=== PATIENT | female | born 1945 | race Caucasian/White ===

== ENCOUNTER 2017-09-28 21:34 | Observation (INO) | payer OTHER ==
[2017-09-28] MEDS ORDERED: ONDANSETRON HCL 4 MG/2 ML VIAL IV PUSH PRN (22:00)
[2017-09-28] MEDS ORDERED: RESP: ALBUTEROL 2.5 MG/IPRATROPIUM 0.5 MG NEB (PRN) INH (22:00)
[2017-09-28] MEDS ORDERED: ACETAMINOPHEN 325 MG TAB PO PRN (22:00)
[2017-09-28] MEDS ORDERED: SODIUM CHLORIDE 0.9% FLUSH 10 ML FLUSH IV FLUSH PRN (22:00)
[2017-09-28] MEDS ORDERED: guaiFENesin/DEXTROMETHORPHAN 200 MG/20 MG/10 ML CUP PO PRN (22:00)
[2017-09-29] VITALS (9 sets, daily range): BP systolic 10–175; BP diastolic 56–89; PULSE 80–118; RESP 16–20; TEMP 97.6–98.5; O2SAT 93–100
[2017-09-29] MEDS: ENOXAPARIN SODIUM 40 MG/0.4 ML SYRINGE SQ SCH ×2 (00:39→20:27)
[2017-09-29] MEDS: NS + KCL 20 MEQ INJ 1,000 ML IV SCH ×3 (00:40→18:32)
[2017-09-29] MEDS: RESP: ALBUTEROL 2.5 MG/IPRATROPIUM 0.5 MG NEB (SCH) INH ×4 (03:16→21:10)
[2017-09-29] MEDS: SODIUM CHLORIDE 0.9% FLUSH 10 ML FLUSH IV FLUSH SCH ×2 (08:10→20:28)
[2017-09-29 09:13] LABS: AUTOMATED NEUTROPHIL # 16.8 TH/MM3 (1.8-7.7); BASOPHIL % 0.1 % (0.0-2.0); EOSINOPHIL # 0.4 TH/MM3 (0-0.4); EOSINOPHIL % 2.2 % (0.0-4.0); HEMATOCRIT 32.5 % (35.0-46.0); HEMOGLOBIN 10.3 GM/DL (11.6-15.3); LYMPH % 9.1 % (9.0-44.0); LYMPHOCYTE # 1.8 TH/MM3 (1.0-4.8); MEAN CELL VOLUME 76.9 FL (80.0-100.0); MEAN CORPUSCULAR HEMOGLOBIN 24.3 PG (27.0-34.0); MEAN CORPUSCULAR HGB CONC 31.7 % (32.0-36.0); MEAN PLATELET VOLUME 9.1 FL (7.0-11.0); MONO % 2.1 % (0.0-8.0); MONOCYTE # 0.4 TH/MM3 (0-0.9); NEUT % 86.5 % (16.0-70.0); PLATELET COUNT 226 TH/MM3 (150-450); RED BLOOD COUNT 4.23 MIL/MM3 (4.00-5.30); RED CELL DISTRIBUTION WIDTH 14.9 % (11.6-17.2); WHITE BLOOD COUNT 19.4 TH/MM3 (4.0-11.0)
[2017-09-29 09:15] LABS: CALCIUM 7.6 MG/DL (8.5-10.1)
[2017-09-29 09:16] LABS: BICARBONATE 25.6 MEQ/L (21.0-32.0)
[2017-09-29 09:19] LABS: CREATININE 0.9 MG/DL (0.50-1.00)
--- NOTE | 2017-09-29 09:43 | HHI.HP ---
[facility] Primary Care Physician Unknown Admission Diagnosis Bronchopneumonia Diagnoses: (1) Pneumonia (2) Hypertension (3) Anemia Chief Complaint: Abdominal pain, nausea, vomiting and subjective fever Travel History International Travel<30 Days: No Contact w/Intl Traveler <30 Da: No Traveled to Known Affected Are: No Sepsis Criteria SIRS Criteria (2 or more): Heart rate over 90, WBC > 18322, < 4000 or > 10% bands Criteria Outcome: Meets SIRS criteria History of Present Illness This is a pleasant 72-year-old Citizen [place]-speaking female patient who presented to the ED with complaints of abdominal pain, nausea, vomiting and subjective fevers. Patient does admit to mild shortness of breath as well. Medical history and assessment was performed with use of Citizen [place]-speaking technical spec. Patient states she has had pain in her stomach for roughly a week, when yesterday the pain started to get worse in her mid epigastric area, does admit to a few bouts of nausea and vomiting. Denied any diarrhea. Does admit to subjective fevers although did not check it at home. Does admit to nonproductive cough as well. Patient has a history of hypertension and GERD. Did undergo an EGD 3 years ago which was reportedly negative. Denies any tobacco abuse. Does admit to some recent dark stools but no hematozemia. Patient does follow with the PCP, was seen last week with no changes in medicines. Denies any recent NSAID use, it should be noted that aspirin is on her medication list but she states she has not taken this in over 6 months. Does have a family history of stomach cancer. Patient presents with leukocytosis 19.4. Does have presence of anemia. Hemoglobin 10.3/hematocrit 32.5. Potassium 3.1. Elevated random glucose 142. Review of Systems Constitutional: COMPLAINS OF: Fever, Chills, DENIES: Fatigue Eyes: DENIES: Blurred vision, Diplopia Respiratory: COMPLAINS OF: Cough, DENIES: Sputum production, Shortness of breath Cardiovascular: DENIES: Chest pain, Palpitations Gastrointestinal: COMPLAINS OF: Abdominal pain, Black stools, Nausea, Vomiting , DENIES: Bloody stools, Constipation, Diarrhea Musculoskeletal: DENIES: Joint pain Hematologic/lymphatic: DENIES: Bruising Psychiatric: COMPLAINS OF: Anxiety Except as stated in HPI: all other systems reviewed are Neg Past Family Social History Past Medical History Hypertension GERD Past Surgical History Tummy tuck with liposuction Reported Medications Active Reported Aspirin 81 Mg Chew 81 Mg CHEW DAILY Lisinopril 20 Mg Tab 20 Mg PO DAILY Omeprazole 40 Mg Cap 40 Mg DAILY Allergies: Coded Allergies: Sulfa (Sulfonamide Antibiotics) (Verified Allergy, Intermediate, 09/28/17) Active Ordered Medications Current Medications Medications (Trade) Dose Ordered Sig/Arabella Route Start Time Stop Time Status Last Admin Potassium Chloride/Sodium Chloride 1,000 ml @ 100 mls/hr Q10H IV 09/28/17 21:47 09/29/17 08:10 (NS Flush) 2 ml UNSCH PRN IV FLUSH 09/28/17 22:00 (NS Flush) 2 ml BID IV FLUSH 09/29/17 09:00 Ceftriaxone Sodium 1000 mg/ Sodium Chloride 100 ml @ 200 mls/hr Q24H IV 09/29/17 21:00 Azithromycin 500 mg/Sodium Chloride 250 ml @ 250 mls/hr Q24H IV 09/29/17 22:00 (Tylenol) 650 mg Q4H PRN PO 09/28/17 22:00 (Zofran Inj) 4 mg Q6H PRN IV PUSH 09/28/17 22:00 (Duoneb Neb) 1 ampule Q6HR NEB INH 09/28/17 22:00 09/29/17 09:13 (Duoneb Neb) 1 ampule Q4HR NEB PRN INH 09/28/17 22:00 (Robitussin Dm 200-20 Mg/10 ml Liq) 10 ml Q4H PRN PO 09/28/17 22:00 (Lovenox Inj) 40 mg Q24H SQ 09/28/17 22:00 09/29/17 00:39 Family History Paternal medical history significant for cardiovascular disease. Patient does have an extensive history of stomach cancer in her family. Social History Denies any tobacco, alcohol or illicit drug use. Does admit to smoking 25 years 1ppd, quit 5 years ago. Physical Exam Vital Signs Vital Signs Date Time Temp Pulse Resp B/P (MAP) Pulse Ox O2 Delivery O2 Flow Rate FiO2 09/29/17 09:16 93 09/29/17 08:20 97.6 80 16 130/56 (80) 100 09/29/17 00:11 98 Nasal Cannula 2.00 09/29/17 00:00 98.5 111 20 116/56 (76) 98 Physical Exam GENERAL: Well-developed, well-nourished patient in [facility]. SKIN: Warm and dry. No rash. HEAD: Normocephalic. Atraumatic. EYES: Pupils equal and round. No scleral icterus. No injection or drainage. ENT: No nasal bleeding or discharge. Mucous membranes pink and moist. NECK: Supple. Trachea midline. CARDIOVASCULAR: Regular rate and rhythm. S1, S2 noted. No murmur appreciated. No chest pain to palpation. RESPIRATORY: No accessory muscle use. Clear to auscultation. Breath sounds equal bilaterally. GASTROINTESTINAL: Abdomen soft, non-tender, nondistended. Normoactive bowel sounds x4. No abdominal pain to palpation. MUSCULOSKELETAL: No obvious deformities. Extremities without clubbing, cyanosis , or edema. NEUROLOGICAL: Awake and alert. No obvious cranial nerve deficits. Motor grossly within normal limits. 5/5 muscle strength in bilateral upper and lower extremities. Normal speech. PSYCHIATRIC: Appropriate mood and affect; insight and judgment normal. Laboratory Laboratory Tests Test 09/29/17 08:52 White Blood Count 19.4 Red Blood Count 4.23 Hemoglobin 10.3 Hematocrit 32.5 Mean Corpuscular Volume 76.9 Mean Corpuscular Hemoglobin 24.3 Mean Corpuscular Hemoglobin Concent 31.7 Red Cell Distribution Width 14.9 Platelet Count 226 Mean Platelet Volume 9.1 Neutrophils (%) (Auto) 86.5 Lymphocytes (%) (Auto) 9.1 Monocytes (%) (Auto) 2.1 Eosinophils (%) (Auto) 2.2 Basophils (%) (Auto) 0.1 Neutrophils # (Auto) 16.8 Lymphocytes # (Auto) 1.8 Monocytes # (Auto) 0.4 Eosinophils # (Auto) 0.4 Basophils # (Auto) 0.0 CBC Comment AUTO DIFF Blood Urea Nitrogen 17 Creatinine 0.90 Random Glucose 142 Calcium Level 7.6 Sodium Level 143 Potassium Level 3.1 Chloride Level 111 Carbon Dioxide Level 25.6 Anion Gap 6 Estimat Glomerular Filtration Rate 62 Date/Time Source Procedure Growth Status 09/29/17 08:05 Nasal Aspirate Influenza Types A,B Antigen (CHARITO) - Final NEGATIVE FOR FLU A AND B ANTIGEN.... Complete Result Diagram: 09/29/1785109/29/17851 Septic Shock Reassessment Septic shock perfusion: reassessment completed Caprini VTE Risk Assessment Caprini VTE Risk Assessment: Mod/High Risk (score >= 2) Caprini Risk Assessment Model Point Value = 1 Point Value = 2 Point Value = 3 Point Value = 5 Age 41-60 Minor surgery BMI > 25 kg/m2 Swollen legs Varicose veins or History of unexplained or recurrent spontaneous Oral contraceptives or hormone replacement Sepsis (< 1 month) Serious lung disease, including pneumonia (< 1 month) Abnormal pulmonary function Acute myocardial infarction Congestive heart failure (< 1 month) History of inflammatory bowel disease Medical patient at bed rest Age 61-74 Arthroscopic surgery Major open surgery (> 45 min) Laparoscopic surgery (> 45 min) Malignancy Confined to bed (> 72 hours) Immobilizing plaster cast Central venous access Age >= 75 History of VTE Family history of VTE Factor V Leiden Prothrombin [id number] Lupus anticoagulant Anticardiolipin antibodies Elevated serum homocysteine Heparin-induced thrombocytopenia Other congenital or acquired thrombophilia Stroke (< 1 month) Elective arthroplasty Hip, pelvis, or leg fracture Acute spinal cord injury (< 1 month) Prophylaxis Regimen Total Risk Factor Score Risk Level Prophylaxis Regimen 0-1 Low Early ambulation 2 Moderate Order ONE of the following: *Sequential Compression Device (SCD) *Heparin 5000 units SQ BID 3-4 Higher Order ONE of the following medications: *Heparin 5000 units SQ TID *Enoxaparin/Lovenox 40 mg SQ daily (WT < 150 kg, CrCl > 30 mL/min) *Enoxaparin/Lovenox 30 mg SQ daily (WT < 150 kg, CrCl > 10-29 mL/min) *Enoxaparin/Lovenox 30 mg SQ BID (WT < 150 kg, CrCl > 30 mL/min) AND/OR *Sequential Compression Device (SCD) 5 or more Highest Order ONE of the following medications: *Heparin 5000 units SQ TID (Preferred with Epidurals) *Enoxaparin/Lovenox 40 mg SQ daily (WT < 150 kg, CrCl > 30 mL/min) *Enoxaparin/Lovenox 30 mg SQ daily (WT < 150 kg, CrCl > 10-29 mL/min) *Enoxaparin/Lovenox 30 mg SQ BID (WT < 150 kg, CrCl > 30 mL/min) AND *Sequential Compression Device (SCD) Assessment and Plan Problem List: (1) Pneumonia ICD Code: J18.9 - Pneumonia, unspecified organism (2) Anemia ICD Code: D64.9 - Anemia, unspecified (3) Hypertension ICD Code: I10 - Essential (primary) hypertension Assessment and Plan This is a pleasant 72-year-old Citizen [place]-speaking female patient who presented to the ED with complaints of abdominal pain, nausea, vomiting and subjective fevers. Patient does admit to mild shortness of breath as well. Medical history and assessment was performed with use of [place]-speaking technical spec. Community-acquired pneumonia with presence of cough and hypoxia with need for supplemental O2 Incidental finding of bilateral small lung nodules rule out inflammatory cause versus infectious process cause versus possible malignancy ? - Meets SIRS criteria with leukocytosis white blood cell 19.4 with left band shift, tachycardia, unknown source suspect secondary to pneumonia. - Chest x-ray reviewed showing interstitial prominence with scattered minimal airspace disease. - Patient denies any recent sick contacts. Denies any known pulmonary nodules in the past. Denies any history of tobacco abuse. - Does admit to a nonproductive cough as well as subjective fevers. Afebrile since presentation. Continue to monitor for infection. A UA is ordered, follow. - Has been started on ceftriaxone and azithromycin IV. Will continue. Robitussin as needed for cough. Will continue IV fluid. - Pulmonary consulted, appreciate input recommendations. - Supplemental O2 as needed, patient is requiring 2 L nasal cannula. Duo nebs as needed. Started on scheduled steroids. - Supportive care. Microcytic, hypochromic anemia with normal RDW: Denies any history of anemia. Does admit to recent dark stools. Denies any hematozemia. Will check Hemoccult stool. Will add iron studies. Nausea and vomiting Hypokalemia, suspect secondary to above - Abdominal/pelvis CT reviewed showing no acute findings. No obstruction, free fluid or free air. Mild basilar airspace disease and septal thickening in the lungs with small nodule at the right and left lung base. -Nausea and vomiting has since resolved since presentation. Zofran available as needed. - Potassium 3.1 on presentation. Will order supplementation. Follow BMP. Elevated random glucose. Denies any history of diabetes. Will add hemoglobin A1c as well as a lipid panel to lab work. Continue to follow. DVT prophylaxis: SCDs. Lovenox. Mary Irby Sep 29, 2017 09:43
[2017-09-29 10:05] LABS: BANDS 20 % (0-6); LYMPHOCYTES 16 % (9-44); MONOCYTES 1 % (0-8); NEUTROPHIL # MANUAL DIFF 16.1 TH/MM3 (1.8-7.7); POLYS (SEG NEUTROPHILS) 63 % (16-70)
[2017-09-29 10:07] LABS: DOHLE BODIES PRESENT (NONE SEEN); OVALOCYTES 1+ (NORMAL); ROULEAUX PRESENT (NORMAL)
[2017-09-29] MEDS ORDERED: OMEP40CA2 (10:53)
[2017-09-29] MEDS ORDERED: ASPI-516 CHEW (10:53)
[2017-09-29] MEDS ORDERED: LISI-515 PO (10:53)
[2017-09-29] MEDS ORDERED: ALUMINUM/MAGNESIUM/SIMETH 30 ML CUP PO PRN (12:45)
[2017-09-29] MEDS ORDERED: PANTOPRAZOLE SODIUM 40 MG VIAL IV PUSH SCH (13:00)
[2017-09-29 15:53] LABS: CHOLESTEROL 126 MG/DL (120-200); TRIGLYCERIDES 125 MG/DL (42-150)
[2017-09-29 15:53] LABS: % SATURATION IRON PROFILE 8.1 % (20-50); IRON (FE) 19 MCG/DL (50-170); TOTAL IRON BINDING CAPACITY 235 MCG/DL (250-450)
[2017-09-29 15:55] LABS: CHOLESTEROL/ HDL RATIO 3.22 RATIO; HDL CHOLESTEROL 39.1 MG/DL (40.0-60.0); LDL CHOLESTEROL 62 MG/DL (0-99)
[2017-09-29 16:21] LABS: BILIRUBIN, URINE NEG (NEG); BLOOD, URINE TRACE (NEG); GLUCOSE,URINE NEG (NEG); KETONE, URINE NEG (NEG); NITRITE,URINE NEG (NEG); URINE COLOR YELLOW (YELLW/STRAW); URINE LEUKOCYTE ESTERASE NEG (NEG)
[2017-09-29 16:27] LABS: AMORPHOUS SEDIMENT, URINE FEW; RBC, URINE 0-3 /hpf (0-3); SQUAMOUS EPITHELIAL CELL URINE 0-5 /hpf (0-5)
[2017-09-29] MEDS ORDERED: PEG (High)/E-LYTE SOLN 4000 ML BTL PO ONE (17:15)
--- NOTE | 2017-09-29 17:48 | MB ---
cc: Spike Almaguer MD DATE: 09/29/2017 REASON FOR REFERRAL: Anemia and abdominal pain. HISTORY OF PRESENT ILLNESS: Thank you for the consultation. A 72-year-old lady who is [place]er-speaking only. This consultation was done with her family present, including her daughter, son-in-law, and . The patient came complaining of some shortness of breath, midepigastric pain with nausea and vomiting. Her symptoms resolved, but then she was found to have severe anemia. The patient apparently had EGD maybe 3-5 years ago. She does not remember the exact finding, but she thinks it was normal. The patient denied any GI symptoms before except gaining some weight that she tried to lose by walking. The patient had elevated white count of 19.4 and questionable shortness of breath. No hematemesis, no hematochezia, no other problem. REVIEW OF SYSTEMS: All 12 points negative. PAST MEDICAL HISTORY: Significant for hypertension and reflux symptoms. PAST SURGICAL HISTORY: Positive for tummy tuck with liposuction and . MEDICATIONS: Reviewed in the chart. No blood thinners, except Lovenox. ALLERGIES: SULFA. FAMILY HISTORY: Coronary artery disease. SOCIAL HISTORY: No tobacco or drug. She used to smoke, but she quit 5 years ago. PHYSICAL EXAMINATION: GENERAL: Alert, oriented, no acute distress. VITAL SIGNS: Stable. HEENT: Pupils round, reactive to light. NECK: Supple. CHEST: Clear to auscultation and percussion. CARDIAC: Regular rate and rhythm. No murmur or gallop. ABDOMEN: Soft, nondistended, nontender. Positive bowel sounds. EXTREMITIES: No edema, clubbing or cyanosis. NEUROLOGIC: Intact, alert, oriented. No muscular abnormality. No weakness or neurological deficit. PSYCHOLOGIC: Appropriate. She understands Korean slightly. LABORATORY AND DIAGNOSTIC DATA: White count 19.4, hemoglobin 10.3, platelet 226. Iron saturation was 8.1. BUN and creatinine normal. Chest x-ray interstitial prominence with scattered minimal airspace disease, bronchopneumonia. CT scan showed mild basilar airspace disease with septal thickening of the lung and small nodule at the right and left lung base. No acute finding in the abdomen. ASSESSMENT AND PLAN: A 72-year-old lady with abdominal pain, nausea, vomiting; could be gastroenteritis, but also pneumonia possibility causing the white count. She has anemia. She will need upper endoscopy and a colonoscopy for the anemia for the iron deficiency. I discussed with the patient the procedure and complication. She is agreeable to have it done. This will be done tomorrow in the morning. Will prep the patient. MD ADRIANA Beckham/SEN , 05:12 PM , 05:47 PM
[2017-09-29] MEDS ORDERED: cefTRIAXone INJ 1,000 MG in SODIUM CHLORIDE 0.9% INJ 100 ML IV SCH (21:00)
[2017-09-29] MEDS ORDERED: methylPREDNISolone SOD SUCC 40 MG/1 ML VIAL IV PUSH SCH (21:00)
[2017-09-29] MEDS ORDERED: AZITHROMYCIN INJ 500 MG in SODIUM CHLOR 0.9% 250 ML INJ 250 ML IV SCH (22:00)
--- NOTE | 2017-09-29 23:50 | EKG ---
Date Performed: 09/29/2017 Time Performed: 17:56:01 PTAGE: 72 years EKG: SINUS TACHYCARDIA ABNORMAL RHYTHM ECG NO PREVIOUS TRACING DOCTOR: [place] Interpretating Date/Time 09/29/2017 23:49:42
[2017-09-30] VITALS (7 sets, daily range): BP systolic 112–158; BP diastolic 58–84; PULSE 100–112; RESP 18–20; TEMP 96.5–98.6; O2SAT 92–97
[2017-09-30] MEDS: NS + KCL 20 MEQ INJ 1,000 ML IV SCH (00:19)
[2017-09-30] MEDS: RESP: ALBUTEROL 2.5 MG/IPRATROPIUM 0.5 MG NEB (SCH) INH ×2 (03:44→09:56)
[2017-09-30 06:01] LABS: CHLORIDE 112 MEQ/L (98-107); HEMATOCRIT 30.5 % (35.0-46.0); HEMOGLOBIN 10.3 GM/DL (11.6-15.3); MEAN CELL VOLUME 76.8 FL (80.0-100.0); MEAN CORPUSCULAR HEMOGLOBIN 25.9 PG (27.0-34.0); MEAN CORPUSCULAR HGB CONC 33.8 % (32.0-36.0); MEAN PLATELET VOLUME 9.3 FL (7.0-11.0); PLATELET COUNT 239 TH/MM3 (150-450); RED BLOOD COUNT 3.98 MIL/MM3 (4.00-5.30); RED CELL DISTRIBUTION WIDTH 15.1 % (11.6-17.2); SODIUM (NA) 145 MEQ/L (136-145); WHITE BLOOD COUNT 14.8 TH/MM3 (4.0-11.0)
[2017-09-30 06:05] LABS: CALCIUM 7.9 MG/DL (8.5-10.1)
[2017-09-30 06:06] LABS: ALBUMIN 2.6 GM/DL (3.4-5.0); BICARBONATE 25.1 MEQ/L (21.0-32.0); BLOOD UREA NITROGEN 9 MG/DL (7-18); GLUCOSE,RANDOM 155 MG/DL (74-106)
[2017-09-30 06:09] LABS: ALT (GPT) 67 U/L (10-53); AST (GOT) 33 U/L (15-37); CREATININE 0.74 MG/DL (0.50-1.00); GLOMERULAR FILTRATION RATE 78 ML/MIN (>89)
[2017-09-30 06:10] LABS: TOTAL BILIRUBIN ADULT 0.4 MG/DL (0.2-1.0)
[2017-09-30 06:11] LABS: TOTAL PROTEIN 6.3 GM/DL (6.4-8.2)
[2017-09-30 06:12] LABS: ALKALINE PHOSPHATASE 176 U/L (45-117)
[2017-09-30 07:26] LABS: BANDS 1 % (0-6); LYMPHOCYTES 10 % (9-44); MONOCYTES 1 % (0-8); NEUTROPHIL # MANUAL DIFF 13.2 TH/MM3 (1.8-7.7); POLYS (SEG NEUTROPHILS) 88 % (16-70)
--- NOTE | 2017-09-30 08:00 | PD.PROCEDR ---
GI Procedure PROCEDURE PERFORMED EGD with biopsy, colonoscopy with snare polypectomy and ablation of polyp INDICATION FOR PROCEDURE Abdominal pain, nausea vomiting, iron deficiency anemia PROCEDURE: The procedure, risks and benefits were discussed with Ms. Otero and informed consent was obtained. Anesthesia sedated her with Diprivan. She was placed in the left lateral decubitus position. EGD Scope was placed in the mouth and advanced under video guidance to the second portion of the duodenum, the scope brought back to the stomach biopsy from the antrum and lesser curve and the scope through back without any immediate complication Colonoscopy Scope was placed in the rectum after performing rectal exam which was normal advanced under video guidance to the cecum which was identified by the ileocecal valve and appendiceal orifice the scope through the back gradually with visualization of the chronic mucosa down to the rectum retroflexion was performed there were multiple polyps in the rectum one removed by snare and 5 ablated with heat scope withdrawal back without immediate complications ESTIMATED BLOOD LOSS: None SPECIMENS REMOVED: Antrum, rectal polyp COMPLICATIONS: None IMPRESSION: Esophagus normal Stomach gastritis biopsy from the antrum Duodenum normal Few polyps in the rectum was removed by snare and for ablated with heat Internal hemorrhoid Normal exams otherwise No sign of active bleeding PLAN: Follow-up biopsy No NSAIDs Protonix 40 mg daily capsule endoscopy as an outpatient May feed patient Okay to [place] home from GI stand Spike Almaguer MD Sep 30, 2017 08:00
--- NOTE | 2017-09-30 08:02 | HHI.GIFU ---
Subjective Remarks Patient lying in bed comfortably, no acute distress, no active bleeding, no nausea or vomiting Objective Vitals I&O Vital Signs Date Time Temp Pulse Resp B/P (MAP) Pulse Ox O2 Delivery O2 Flow Rate FiO2 09/30/17 06:40 98.1 112 18 125/58 (80) 95 09/30/17 04:00 98.1 112 20 123/58 (79) 95 09/30/17 00:00 97.4 100 18 134/67 (89) 92 09/29/17 21:10 94 Nasal Cannula 2.00 09/29/17 20:00 97.7 118 20 175/89 (117) 99 09/29/17 16:20 98.4 112 16 10/56 (41) 95 09/29/17 12:00 98.1 94 18 113/63 (80) 100 09/29/17 09:16 93 09/29/17 08:20 97.6 80 16 130/56 (80) 100 I/O 09/29/17 09/29/17 09/29/17 09/30/17 09/30/17 09/30/17 07:00 15:00 23:00 07:00 15:00 23:00 Intake Total 240 ml 1000 ml 200 ml Output Total 301 ml 350 ml Balance 240 ml -301 ml -350 ml 1000 ml 200 ml Intake Oral 240 ml 1000 ml Other 200 ml Output Urine Total 300 ml 350 ml Stool Total 1 ml # Voids 2 6 # Bowel Movements 2 6 Laboratory Laboratory Tests Test 09/29/17 08:52 09/29/17 12:23 09/29/17 16:15 09/30/17 05:30 White Blood Count 19.4 14.8 Red Blood Count 4.23 3.98 Hemoglobin 10.3 10.3 Hematocrit 32.5 30.5 Mean Corpuscular Volume 76.9 76.8 Mean Corpuscular Hemoglobin 24.3 25.9 Mean Corpuscular Hemoglobin Concent 31.7 33.8 Red Cell Distribution Width 14.9 15.1 Platelet Count 226 239 Mean Platelet Volume 9.1 9.3 Neutrophils (%) (Auto) 86.5 Lymphocytes (%) (Auto) 9.1 Monocytes (%) (Auto) 2.1 Eosinophils (%) (Auto) 2.2 Basophils (%) (Auto) 0.1 Neutrophils # (Auto) 16.8 Lymphocytes # (Auto) 1.8 Monocytes # (Auto) 0.4 Eosinophils # (Auto) 0.4 Basophils # (Auto) 0.0 CBC Comment AUTO DIFF AUTO DIFF Differential Total Cells Counted 100 100 Neutrophils % (Manual) 63 88 Band Neutrophils % 20 1 Lymphocytes % 16 10 Monocytes % 1 1 Neutrophils # (Manual) 16.1 13.2 Differential Comment FINAL DIFF MANUAL FINAL DIFF MANUAL Dohle Bodies PRESENT Platelet Estimate NORMAL NORMAL Platelet Morphology Comment NORMAL NORMAL Ovalocytes 1+ Rouleau PRESENT Blood Urea Nitrogen 17 9 Creatinine 0.90 0.74 Random Glucose 142 155 Calcium Level 7.6 7.9 Sodium Level 143 145 Potassium Level 3.1 3.2 Chloride Level 111 112 Carbon Dioxide Level 25.6 25.1 Anion Gap 6 8 Estimat Glomerular Filtration Rate 62 78 Triglycerides Level 125 Cholesterol Level 126 LDL Cholesterol 62 HDL Cholesterol 39.1 Cholesterol/HDL Ratio 3.22 Iron Level 19 Total Iron Binding Capacity 235 Percent Iron Saturation 8.1 Urine Collection Type CLEAN CATCH Urine Color YELLOW Urine Turbidity CLEAR Urine pH 6.0 Urine Specific [place] 1.015 Urine Protein NEG Urine Glucose (UA) NEG Urine Ketones NEG Urine Occult Blood TRACE Urine Nitrite NEG Urine Bilirubin NEG Urine Urobilinogen 0.2 Urine Leukocyte Esterase NEG Urine RBC 0-3 Urine Squamous Epithelial Cells 0-5 Urine Amorphous Sediment FEW Microscopic Urinalysis Comment CULT NOT INDICATED Urine Collection Time 1615 Total Protein 6.3 Albumin 2.6 Alkaline Phosphatase 176 Aspartate Amino Transf (AST/SGOT) 33 Alanine Aminotransferase (ALT/SGPT) 67 Total Bilirubin 0.4 Date/Time Source Procedure Growth Status 09/29/17 16:15 Stool Stool Stool Occult Blood (CHARITO) - Final HEMOCCULT NEGATIVE Complete 09/29/17 08:05 Nasal Aspirate Influenza Types A,B Antigen (CHARITO) - Final NEGATIVE FOR FLU A AND B ANTIGEN.... Complete Physical Exam HEENT: Pupils round and reactive to light; normocephalic; atraumatic; no jaundice. Throat is clear. NECK: Neck is supple, no JVD, no lymphadenopathy. CHEST: Chest is clear to auscultation and percussion. CARDIAC: Regular rate and rhythm with no murmur gallop or rubs. ABDOMEN: Soft, nondistended, nontender; no hepatosplenomegaly; bowel sounds are present in all four quadrants. EXTREMITIES: No clubbing, cyanosis, or edema. SKIN: Normal; no rash; no jaundice. 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 Assessment and Plan Plan 72-year-old lady came with nausea vomiting abdominal discomfort symptoms resolved could be gastroenteritis, patient found to have microcytic anemia, had an upper endoscopy and colonoscopy today IMPRESSION: Esophagus normal Stomach gastritis biopsy from the antrum Duodenum normal Few polyps in the rectum was removed by snare and for ablated with heat Internal hemorrhoid Normal exams otherwise No sign of active bleeding PLAN: Follow-up biopsy No NSAIDs Protonix 40 mg daily capsule endoscopy as an outpatient May feed patient Okay to [place] home from GI stand Spike Almaguer MD Sep 30, 2017 08:02
--- NOTE | 2017-09-30 08:37 | HHI.PR ---
Subjective Remarks Follow-up abdominal pain, pneumonia and lung nodules. Patient seen and examined , status post EGD and colonoscopy this morning. Patient was found to have gastritis. Is improved today. Abdominal pain absent. No dyspnea. On room air , oxygen saturations adequate. Vital signs are stable. Afebrile. Labs stable today. Objective Vitals Vital Signs Date Time Temp Pulse Resp B/P (MAP) Pulse Ox O2 Delivery O2 Flow Rate FiO2 09/30/17 08:05 101 16 148/89 (108) 95 09/30/17 07:56 108 16 151/87 (108) 97 09/30/17 07:45 98.0 103 14 140/79 (99) 93 09/30/17 06:40 98.1 112 18 125/58 (80) 95 09/30/17 04:00 98.1 112 20 123/58 (79) 95 09/30/17 00:00 97.4 100 18 134/67 (89) 92 09/29/17 21:10 94 Nasal Cannula 2.00 09/29/17 20:00 97.7 118 20 175/89 (117) 99 09/29/17 16:20 98.4 112 16 10/56 (41) 95 09/29/17 12:00 98.1 94 18 113/63 (80) 100 09/29/17 09:16 93 I/O 09/29/17 09/29/17 09/29/17 09/30/17 09/30/17 09/30/17 07:00 15:00 23:00 07:00 15:00 23:00 Intake Total 240 ml 1000 ml 200 ml Output Total 301 ml 350 ml Balance 240 ml -301 ml -350 ml 1000 ml 200 ml Intake Oral 240 ml 1000 ml 0 ml Other 200 ml Output Urine Total 300 ml 350 ml Stool Total 1 ml # Voids 2 6 0 # Bowel Movements 2 6 Result Diagram: 09/30/17 0530 09/30/17 0530 Imaging Last Impressions Chest CT 09/30/17 0000 Signed Impressions: Service Date/Time: Saturday, September 30, 2017 09:40 - CONCLUSION: 1. Single small noncalcified pulmonary nodule in the right lower lobe which is nonspecific but likely benign. A 12 month followup noncontrast outpatient chest CT is recommended. 2. Scattered small patchy areas of alveolar opacity greatest in the subpleural regions likely representing scarring and/or interstitial lung disease. There is no consolidation. Hiram Montgomery MD Objective Remarks GENERAL: Well-developed, well-nourished patient in NAD. SKIN: Warm and dry. No rash. HEAD: Normocephalic. Atraumatic. EYES: Pupils equal and round. No scleral icterus. No injection or drainage. ENT: No nasal bleeding or discharge. Mucous membranes pink and moist. NECK: Supple. Trachea midline. CARDIOVASCULAR: Regular rate and rhythm. S1, S2 noted. No murmur appreciated. RESPIRATORY: No accessory muscle use. Clear to auscultation. Breath sounds equal bilaterally. GASTROINTESTINAL: Abdomen soft, non-tender, nondistended. Normoactive bowel sounds x4. No pain to palpation. MUSCULOSKELETAL: No obvious deformities. Extremities without clubbing, cyanosis , or edema. NEUROLOGICAL: Awake and alert. No obvious cranial nerve deficits. Motor grossly within normal limits. 5/5 muscle strength in bilateral upper and lower extremities. Normal speech. PSYCHIATRIC: Appropriate mood and affect; insight and judgment normal. A/P Problem List: (1) Pneumonia ICD Code: J18.9 - Pneumonia, unspecified organism (2) Anemia ICD Code: D64.9 - Anemia, unspecified (3) Hypertension ICD Code: I10 - Essential (primary) hypertension Assessment and Plan This is a pleasant 72-year-old Mauritian-speaking female patient who presented to the ED with complaints of abdominal pain, nausea, vomiting and subjective fevers. Patient does admit to mild shortness of breath as well. Medical history and assessment was performed with use of Mauritian-speaking die caster. Community-acquired pneumonia with presence of cough and hypoxia with need for supplemental O2 Incidental finding of bilateral small lung nodules rule out inflammatory cause versus infectious process cause versus possible malignancy ? - Met SIRS criteria on presentation with leukocytosis white blood cell 19.4 with left band shift, tachycardia, unknown source suspect secondary to pneumonia. Leukocytosis trending down - Chest x-ray reviewed showing interstitial prominence with scattered minimal airspace disease. - Patient denies any recent sick contacts. Denies any known pulmonary nodules in the past. Denies any history of tobacco abuse. - Does admit to a nonproductive cough as well as subjective fevers. Afebrile since presentation. Continue to monitor for infection. UA negative. - Has been started on ceftriaxone and azithromycin IV. Will continue upon presentation. Robitussin as needed for cough. - Pulmonary consulted, appreciate input recommendations. CT chest done showing single small noncalcified pulmonary nodule in the right lower love which is nonspecific and likely benign. Follow up [address] Patient and family updated. Follow up pulmonary in outpatient setting. - Supplemental O2 as needed, patient is comfortable on room air this morning.. Duo nebs as needed. Started on scheduled steroids. Weaned. - Supportive care. Microcytic, hypochromic anemia with normal RDW, iron deficiency anemia: Denies any history of anemia. Does admit to recent dark stools. Denies any hematozemia. Hemoccult stool negative. Iron studies showing low iron. Will place on supplementation. CBC stable today. Nausea and vomiting Hypokalemia, suspect secondary to above - Abdominal/pelvis CT reviewed showing no acute findings. No obstruction, free fluid or free air. Mild basilar airspace disease and septal thickening in the lungs with small nodule at the right and left lung base. -Nausea and vomiting has since resolved since presentation. Zofran available as needed. - GI did an EGD and colonoscopy today, showing some gastritis. Placed on Protonix. Follow-up in office for biopsy. Avoid NSAIDs. Patient tolerating p.o. intake well. No abdominal pain, nausea or vomiting. - Potassium 3.2 today. Will order supplementation. Elevated random glucose. Denies any history of diabetes. DVT prophylaxis: SCDs. Lovenox. Mary Irby Sep 30, 2017 08:37
[2017-09-30] MEDS ORDERED: methylPREDNISolone SOD SUCC 40 MG/1 ML VIAL IV PUSH SCH (09:00)
[2017-09-30] MEDS ORDERED: POTASSIUM CHLORIDE 10 MEQ CONTROLLED RELEASE TAB PO ONE (09:00)
[2017-09-30] MEDS: SODIUM CHLORIDE 0.9% FLUSH 10 ML FLUSH IV FLUSH SCH (09:20)
--- NOTE | 2017-09-30 09:27 | MB ---
cc: Jovanna Nugent MD DATE: 09/30/2017 REASON FOR CONSULTATION: Pneumonia, lung nodules. HISTORY OF PRESENT ILLNESS: Mrs. Otero is a 72-year-old female who was admitted with nausea, vomiting, abdominal pain. She as well, has fevers, does have a cough for several days. She does have a chronic cough and this seems somewhat worse. She does smoke electronic cigarettes. She has been seen by GI, upper and lower endoscopy done. She did have evidence of gastritis, a few rectal polyps were removed, otherwise unremarkable. She did have evidence of anemia, which is being evaluated as well. Her hemoglobin was at 10.3. She denies history of hemoptysis, TB or previous industrial exposure. PAST MEDICAL HISTORY: Hypertension, acid reflux and liposuction in the past. MEDICATIONS AT HOME: 1. Omeprazole. 2. Lisinopril. 3. Aspirin. ALLERGIES: SULFA DRUGS. FAMILY HISTORY: Noncontributory. SOCIAL HISTORY: Smokes electronic cigarettes as above. Apparently, did smoke in the past and now smokes electronic cigarettes as well. REVIEW OF SYSTEMS: A 12-point review of systems as per HPI and past history, otherwise negative. PHYSICAL EXAMINATION: VITAL SIGNS: Temperature 98, pulse 100, respirations 18, blood pressure 140/90. Oxygen saturation 95% on room air. HEENT: Unremarkable. Eyes without icterus. NECK: Without adenopathy or thyroid enlargement. Central trachea. CHEST: Scattered rhonchi bilaterally, more so at the bases, decreased with cough. CARDIAC: PMI not appreciated. S1, S2 audible. A 1/6 soft ejection systolic murmur in left sternal border. ABDOMEN: Lax, bowel sounds audible. EXTREMITIES: No clubbing, cyanosis or edema. SKIN: Normal. No lymphadenopathy. LABORATORY DATA: White count 14,000, hemoglobin 10, hematocrit 30. Sodium 145, potassium 3.2, BUN 9, creatinine 0.7. Chest x-ray with interstitial prominence bilaterally. Bibasilar lung nodules were noted by CT scan of the abdomen. IMPRESSION: 1. Upper respiratory infection, question pneumonia. 2. Bibasilar lung nodules. 3. Chronic obstructive pulmonary disease suspect. 4. Anemia of mild degree. 5. Hypertension. 6. Acid reflux disease. PLAN: The patient is placed on antibiotic therapy for community-acquired pneumonia, which is appropriate. We will check her baseline pulmonary function to assess the possibility of underlying chronic obstructive pulmonary disease. Meanwhile, a CT scan of the chest would be appropriate as well to assess the presence of other nodularities or abnormalities within the chest. The patient is advised not to smoke any form of cigarettes electronic or otherwise. We will follow her course along with you and, depending on progress, proceed further. I do thank you for asking me to partake in Mrs Otero's care. Jovanna Nugent MD WWW/SEN , 09:04 AM , 09:26 AM
[2017-09-30] MEDS ORDERED: POLYSACCHARIDE IRON COMPLEX 150 MG CAP PO SCH (10:00)
--- NOTE | 2017-09-30 10:10 | RADRPT ---
EXAM DATE/TIME: 09/30/2017 09:40 [facility] COMPARISON: CT ABDOMEN & PELVIS W CONTRAST, September 28, 2017, 19:46. CHEST PA & LAT, September 28, 2017, 20:14. INDICATIONS : Abnormal chest x-ray in patient with fever. Interstitial prominence was noted as well as scattered minimal airspace disease. No complaints. RADIATION DOSE: 6.75 CTDIvol (mGy) MEDICAL HISTORY : None SURGICAL HISTORY : section. ENCOUNTER: Subsequent ACUITY: 2 days PAIN SCALE: 0/10 LOCATION: chest TECHNIQUE: Volumetric scanning of the chest was performed. Using automated exposure control and adjustment of t he mA and/or kV according to patient size, radiation dose was kept as low as reasonably achievable to obtain optimal diagnostic quality images. DICOM format image data is available electronically for r eview and comparison. Follow-up recommendations for detected pulmonary nodules are based at a minimum on nodule size and pa tient risk factors according to Fleischner Society Guidelines. FINDINGS: LUNGS: There is no consolidation or pneumothorax. There are multiple small scattered patchy areas of alveola r opacity greatest in the subpleural regions. There is a single subtle 3-4 mm noncalcified pulmonary nodule in the right lower lobe on image #36. PLEURAE: There is no pleural thickening or pleural effusion. MEDIASTINUM: The heart and great vessels demonstrate no acute abnormality. There is no mediastinal or hilar lymph adenopathy. Mild coronary artery calcifications are present. AXILLAE: Within normal limits. No lymphadenopathy. MUSCULOSKELETAL: Within normal limits for patient age. MISCELLANEOUS: The visualized upper abdominal organs demonstrate no acute abnormality. CONCLUSION: 1. Single small noncalcified pulmonary nodule in the right lower lobe which is nonspecific but likely benign. A 12 month followup noncontrast outpatient chest CT is recommended. 2. Scattered small patchy areas of alveolar opacity greatest in the subpleural regions likely represe nting scarring and/or interstitial lung disease. There is no consolidation. Hiram Montgomery MD on September 30, 2017 at 10:03 Board Certified Radiologist. This report was verified electronically.
[2017-09-30] MEDS ORDERED: PROT40TA PO (10:48)
[2017-09-30] MEDS ORDERED: MEDR4PAK PO (10:48)
[2017-09-30] MEDS ORDERED: DEXT10SY2 PO (10:48)
[2017-09-30] MEDS ORDERED: NU-IRON PO (10:48)
[2017-09-30] MEDS ORDERED: AMOX875T PO (10:48)
--- NOTE | 2017-09-30 10:49 | HHI.DCPOC ---
Discharge Care Plan Diagnosis: (1) Gastritis (2) Anemia (3) Hypertension (4) Pneumonia Goals to Promote Your Health * To prevent worsening of your condition and complications * To maintain your health at the optimal level Directions to Meet Your Goals Take your medications as prescribed Follow your dietary instruction Follow activity as directed Keep your appointments as scheduled Take your immunizations and boosters as scheduled If your symptoms worsen call your PCP, if no PCP go to Urgent Care Center or Emergency Room Smoking is Dangerous to Your Health. Avoid second hand smoke Call the 24-hour hour crisis hotline for domestic abuse at Mary Irby Sep 30, 2017 10:49
== END 2017-09-30 13:30 | disposition home or self-care (01) ==
LOC: PHEDDLT 22:58 → PH3A 23:08
PROVIDERS: ADMIT Hospitalist; ATTEND Hospitalist
DX: J18.0 Bronchopneumonia, unspecified organism (principal); K62.1 Rectal polyp; K64.8 Other hemorrhoids; K29.00 Acute gastritis without bleeding; K31.9 Disease of stomach and duodenum, unspecified; I10 Essential (primary) hypertension; D50.9 Iron deficiency anemia, unspecified; R50.9 Fever, unspecified; R10.13 Epigastric pain; R11.2 Nausea with vomiting, unspecified; K21.9 Gastro-esophageal reflux disease without esophagitis; R06.02 Shortness of breath; Z80.0 Family history of malignant neoplasm of digestive organs; Z82.49 Family history of ischemic heart disease and other diseases of the circulatory system; Z87.891 Personal history of nicotine dependence
CPT/HCPCS: 00813; 36600; 43239; 45385; 71046; 71250; 74177; 80048; 80053; 80061; 81001; 82272; 82805; 83036; 83540; 83550; 83605; 83690; 85007; 85027; 85610; 85730; 87040; 87804; 88305; 88312; 93005; 94150; 94640; 94664; 96365; 96366; 96368; 96372; 96375; 97161; 99285; C9113; G0378; G8987; G8988; J0456; J0696; J1650; J2270; J2405; J2920; J3480; J7030; J7050; Q9967